=== PATIENT | male | born 1935 | race Asian ===

== ENCOUNTER 2019-12-04 10:05 | Outpatient (CLI) | payer MEDICARE ==
[2019-12-04 10:33] LABS: BASOPHILS # (AUTO) 0.03 x10^3/uL (0-0.1); BASOPHILS % (AUTO) 1 % (0-1); EOSINOPHILS # (AUTO) 0.27 x10^3/uL (0-0.4); EOSINOPHILS % (AUTO) 5 % (1-7); LYMPHOCYTES # (AUTO) 0.67 x10^3/uL (1-3.4); LYMPHOCYTES % (AUTO) 13 % (22-44); MD NO; MEAN CORPUSCULAR HEMOGLOBIN 32.3 pg (27.5-34.5); MEAN CORPUSCULAR HGB CONC 33.2 g/dL (33.2-36.2); MEAN CORPUSCULAR VOLUME 97.1 fL (81-97); MEAN PLATELET VOLUME 6.7 fL (7.4-10.4); MONOCYTES # (AUTO) 0.63 x10^3/uL (0.2-0.8); MONOCYTES % (AUTO) 12 % (2-9); NEUTROPHILS # (AUTO) 3.61 x10^3/uL (1.8-6.8); NEUTROPHILS % (AUTO) 69 % (42-75); PLATELET COUNT 293 x10^3/uL (130-400); RED BLOOD COUNT 4.41 x10^6/uL (4.38-5.82); RED CELL DISTRIBUTION WIDTH 13.8 % (9.4-14.8)
[2019-12-04 10:44] LABS: INTERNATIONAL NORMALIZED RATIO 0.99 (0.93-1.1); PROTHROMBIN TIME 10.5 Seconds (9.6-11.5)
[2019-12-04 10:46] LABS: ALANINE AMINOTRANSFERASE 20 U/L (12-78); ALBUMIN 3.6 g/dL (3.4-5.0); ANION GAP 8 mmol/L (5-15); CALCIUM 9.3 mg/dL (8.5-10.1); CHLORIDE 107 mmol/L (98-107); CREATININE 1.19 mg/dL (0.7-1.3)
[2019-12-04 10:48] LABS: ALKALINE PHOSPHATASE 59 U/L (45-117); BILIRUBIN,TOTAL 0.6 mg/dL (0.2-1.0); TOTAL PROTEIN 7.8 g/dL (6.4-8.2)
[2019-12-09] MEDS ORDERED: ACETAMINOPHEN 500 MG TABLET ONE (11:54)
== END 2019-12-04 23:59 | disposition home or self-care (01) ==
LOC: LAB 10:05
PROVIDERS: ATTEND Urology
DX: Z01.818 Encounter for other preprocedural examination (principal); N40.1 Benign prostatic hyperplasia with lower urinary tract symptoms
CPT/HCPCS: 36415; 80053; 85025; 85610; 85730; 87086

== ENCOUNTER 2019-12-09 10:31 | Observation (INO) | payer MEDICARE ==
[~2019-12-09] VITALS: Ht 172.7 cm; Wt 67.0 kg
[2019-12-09 11:22] VITALS: BP 145/84
[2019-12-09] MEDS ORDERED: VITAMIND3 (11:22)
[2019-12-09] MEDS ORDERED: OMEP-110 PO (11:22)
[2019-12-09] MEDS ORDERED: VITAMINB12 (11:22)
[2019-12-09] MEDS ORDERED: ATOR20TA86 PO (11:22)
[2019-12-09] MEDS ORDERED: FENTANYL PF 250 MCG/5ML ONE (11:34)
[2019-12-09] MEDS ORDERED: SUCCINYLCHOLINE 20 MG/ML, 10ML ONE (11:34)
[2019-12-09] MEDS ORDERED: DEXAMETHASONE 4 MG/ML, 1ML ONE ×2 (11:34)
[2019-12-09] MEDS ORDERED: ROCURONIUM 10MG/ML,5ML ONE (11:34)
[2019-12-09] MEDS ORDERED: PROPOFOL 10 MG/ML, 20ML ONE (11:34)
[2019-12-09] MEDS ORDERED: LIDOCAINE-MPF 2% ,5ML ONE (11:35)
[2019-12-09] MEDS ORDERED: LACTATED RINGERS 1,000 ML IV SCH (12:00)
[2019-12-09] MEDS ORDERED: ACETAMINOPHEN 500 MG TABLET PO ONE (12:00)
[2019-12-09] MEDS ORDERED: GENTAMICIN 80 MG/2 ML ONE (12:39)
[2019-12-09] MEDS ORDERED: hydrALAzine 20 MG/ML, 1ML IV PRN (13:00)
[2019-12-09] MEDS ORDERED: MIDAZOLAM 1 MG/ML, 2ML IV PRN (13:00)
[2019-12-09] MEDS ORDERED: MEPERIDINE/PF 25MG/ML,1ML IVPush PRN (13:00)
[2019-12-09] MEDS ORDERED: HYDROmorphone 1 MG/ML, 1ML INJ IVPush PRN (13:00)
[2019-12-09] MEDS ORDERED: HALOPERIDOL 5 MG/ML IV PRN (13:00)
[2019-12-09] MEDS ORDERED: DIAZEPAM 5 MG/ML, 2ML IVPush PRN (13:00)
[2019-12-09] MEDS ORDERED: EPHEDRINE 50 MG/ML, 1ML IVPush PRN (13:00)
[2019-12-09] MEDS ORDERED: PROMETHAZINE 12.5 MG SUPP PR PRN (13:00)
[2019-12-09] MEDS ORDERED: ONDANSETRON ODT 8 MG PO PRN (13:00)
[2019-12-09] MEDS ORDERED: OXYcodone 5 MG/5 ML ORAL.SOL UDC PO PRN (13:00)
[2019-12-09] MEDS ORDERED: ALBUTEROL SULFATE 2.5 MG/3 ML NPPB PRN (13:00)
[2019-12-09] MEDS ORDERED: PROMETHAZINE 25 MG/ML, 1ML IV PRN (13:00)
[2019-12-09] MEDS ORDERED: LABETALOL 5MG/ML, 20ML IV PRN (13:00)
[2019-12-09] MEDS ORDERED: ONDANSETRON 2MG/ML, 2ML IV PRN ×2 (13:00→15:30)
[2019-12-09] MEDS ORDERED: FENTANYL PF 100 MCG/2ML IV PRN (13:00)
[2019-12-09] MEDS ORDERED: OPIUM/BELLADONNA SUPP.RECT 16.2-60 MG ONE (13:04)
[2019-12-09] MEDS ORDERED: DESMOPRESSIN 20 MCG in SODIUM CHLORIDE 0.9% 50 ML IV ONE (14:00)
[2019-12-09] MEDS ORDERED: ONDANSETRON 2MG/ML, 2ML ONE (14:34)
[2019-12-09] MEDS ORDERED: EPHEDRINE 50 MG/ML, 1ML ONE (14:34)
[2019-12-09 14:45] VITALS: BP 109/58
[2019-12-09] MEDS ORDERED: OPIUM/BELLADONNA SUPP.RECT 16.2-30 MG PR PRN (15:30)
[2019-12-09] MEDS: SODIUM CHLORIDE 0.9% 1,000 ML IV SCH (17:07)
[2019-12-09 18:32] VITALS: BP 132/71
[2019-12-09] MEDS: CEFAZOLIN PMX 1GM/50ML 50 ML IV SCH (19:58)
[2019-12-09] MEDS: GENTAMICIN 80 MG in SODIUM CHLORIDE 0.9% 50 ML IV SCH (20:55)
[2019-12-10 00:01] VITALS: BP 127/74
[2019-12-10] MEDS: CEFAZOLIN PMX 1GM/50ML 50 ML IV SCH (04:35)
[2019-12-10 04:43] VITALS: BP 139/66
[2019-12-10] MEDS: GENTAMICIN 80 MG in SODIUM CHLORIDE 0.9% 50 ML IV SCH (05:20)
[2019-12-10 06:14] LABS: ANION GAP 8 mmol/L (5-15); CALCIUM 8.6 mg/dL (8.5-10.1); CHLORIDE 103 mmol/L (98-107)
[2019-12-10 06:16] LABS: CREATININE 1.01 mg/dL (0.7-1.3)
[2019-12-10 07:13] VITALS: BP 127/67
[2019-12-10] MEDS: SODIUM CHLORIDE 0.9% 1,000 ML IV SCH (12:00)
[2019-12-10 14:24] VITALS: BP 117/61
== END 2019-12-10 17:47 | disposition home or self-care (01) ==
LOC: EDBD → OUT 10:31 → MERGE 12:00 → 4NE 14:36 → OUT 15:49 → INTOOBSV 15:55 → 4NE 15:55
PROVIDERS: ADMIT Urology; ATTEND Urology
DX: N40.1 Benign prostatic hyperplasia with lower urinary tract symptoms (principal); R33.8 Other retention of urine; N20.0 Calculus of kidney; N21.0 Calculus in bladder; N39.0 Urinary tract infection, site not specified; E78.5 Hyperlipidemia, unspecified; K21.9 Gastro-esophageal reflux disease without esophagitis; Z87.891 Personal history of nicotine dependence
CPT/HCPCS: 36415; 52317; 52601; 80048; 82360; 85014; 85018; 88300; 88305; 93005; 96365; 96366; 96367; G0378; J0330; J0690; J1100; J1580; J2405; J2704; J3010; J3490; J7030